=== PATIENT | female | born 2000 | race Caucasian/White ===

== ENCOUNTER 2020-07-06 15:07 | Emergency (ER) | payer OTHER ==
[~2020-07-06] VITALS: Ht 175.3 cm; Wt 105.6 kg
[2020-07-06 17:07] LABS: CHLAMYDIA DNA AMPLIFICATION NEGATIVE (NEGATIVE); GC DNA AMPLIFICATION NEGATIVE (NEGATIVE)
[2020-07-06 20:19] VITALS: BP 131/76
[2020-07-06] MEDS ORDERED: FLAG500T PO (20:25)
[2020-07-06 20:44] LABS: CHLAMYDIA DNA AMPLIFICATION NEGATIVE (NEGATIVE); GC DNA AMPLIFICATION NEGATIVE (NEGATIVE)
[2020-07-06] MEDS ORDERED: metroNIDAZOLE (FLAGYL) 500MG TABLET PO ONE (21:20)
[2020-07-06] MEDS ORDERED: NITR1CAP11 PO (21:20)
[2020-07-06] MEDS ORDERED: NITROFURANTOIN (MACROBID) 100 MG CAP PO ONE (21:25)
== END 2020-07-06 21:28 | disposition home or self-care (01) ==
LOC: M ED 15:07
DX: N39.0 Urinary tract infection, site not specified (principal); N76.0 Acute vaginitis; B96.89 Other specified bacterial agents as the cause of diseases classified elsewhere

== ENCOUNTER → 2020-07-15 | Outpatient (REF) ==
[~2020-07-15] MED LIST: FLAG500T PO; NITR1CAP11 PO
[2020-07-17 04:12] LABS: HERPES ZOSTER, VARICELLA IgG <135 index (Immune >165); RUBEOLA IgG ANTIBODY >300.0 AU/mL (Immune >16.4)
== END ==
LOC: M LAB 14:59
PROVIDERS: ATTEND Nurse Practitioner Adult Health
DX: Z00.8 Encounter for other general examination (principal)